=== PATIENT | female | born 1985 | race Hispanic/Latino ===

== ENCOUNTER 2017-11-07 08:30 | Inpatient (IN) | payer MEDICAID, OTHER ==
[~2017-11-07] VITALS: Ht 157.5 cm; Wt 73.5 kg
[2017-11-08 16:32] LABS: HEMATOCRIT 34.6 % (36-48); MEAN CORPUSCULAR HEMOGLOBIN 30.8 pg (27.0-33.0); MEAN CORPUSCULAR HGB CONC 33.6 g/dL (32.0-36.0); MEAN CORPUSCULAR VOLUME 91.8 fL (79-99); PLATELET COUNT (AUTO) 177 K/uL (130-400); RED BLOOD CELL COUNT(AUTO) 3.77 MIL/uL (4.00-5.50); RED CELL DISTRIBUTION WIDTH 13.8 % (11.0-15.5); WHITE BLOOD COUNT (AUTO) 7.1 K/uL (4.8-10.8)
[2017-11-09] MEDS ORDERED: LACTATED RINGERS 1000ML 1,000 ML IV SCH (07:15)
[2017-11-09] MEDS ORDERED: CALDOLOR 800MG+NS 250ML 250 ML IV PRN (07:15)
[2017-11-09] MEDS ORDERED: SENSORCAINE/DEXT/PF 0.75% 2ML AMP IJ ONE (11:13)
[2017-11-09] MEDS ORDERED: DURAMORPH PF1 MG/ML 10ML AMP IV ONE (11:14)
[2017-11-09] MEDS ORDERED: CEFAZOLIN SODIUM 1 GM VIAL IVP ONE (13:35)
[2017-11-09] MEDS ORDERED: PROMETHAZINE HCL 25 MG/ML 1ML AMPULE IM PRN ×2 (16:00→22:00)
[2017-11-09] MEDS ORDERED: DiphenhydrAMINE HCL 50 MG/ML VIAL IVP PRN (16:00)
[2017-11-09] MEDS ORDERED: METOCLOPRAMIDE 10 MG/2 ML VIAL IVP PRN (16:00)
[2017-11-09] MEDS ORDERED: NALOXONE HCL 0.4 MG/1 ML ML IVP PRN ×2 (16:00)
[2017-11-09] MEDS ORDERED: ONDANSETRON HCL 4 MG/2 ML VIAL IVP PRN ×2 (16:00)
[2017-11-09] MEDS ORDERED: ONDANSETRON HCL 4 MG/2 ML 8 MG in SODIUM CHLORIDE 0.9% 50 ML IVP NR (16:00)
[2017-11-09] MEDS ORDERED: HYDROCODONE/ACETAMINOPHEN 5/325 MG TAB PO PRN (16:00)
[2017-11-09] MEDS ORDERED: MORPHINE SULFATE 2 MG/ML 1ML SYG IVP PRN (16:00)
[2017-11-09] MEDS ORDERED: EPHEDRINE SULFATE 50 MG/ML AMPULE IVP PRN (16:00)
[2017-11-09] MEDS ORDERED: ONDANSETRON HCL MDV 20ML 2 MG/ML VIAL IVP PRN ×2 (16:01)
[2017-11-09] MEDS ORDERED: ONDANSETRON HCL 4 MG/2 ML VIAL ONE (16:02)
[2017-11-09] MEDS ORDERED: SODIUM CHLORIDE 0.9% IVP PRN (16:15)
[2017-11-09] MEDS ORDERED: ONDANSETRON HCL IVP PRN (16:15)
[2017-11-09 16:34] VITALS: BP 119/75
[2017-11-09] MEDS: HYDROCODONE/ACETAMINOPHEN 5/325 MG TAB PO PRN (16:53)
[2017-11-09 19:39] VITALS: BP 103/57
[2017-11-09] MEDS ORDERED: OXYTOCIN-LR 20 UNITS/1000 ML 1,000 ML IV PRN (21:51)
[2017-11-09] MEDS ORDERED: MEPERIDINE-PF 75 MG/ML SYG IM PRN (22:00)
[2017-11-09] MEDS ORDERED: SODIUM CHLORIDE 0.9% 10 ML VIAL IVP PRN (22:00)
[2017-11-09] MEDS: CALDOLOR 800MG+NS 250ML 250 ML IV SCH (22:03)
[2017-11-09] MEDS: CEFAZOLIN 2GM / 50 ML 50 ML IV SCH (22:30)
[2017-11-09] MEDS: CEFAZOLIN SODIUM 1 GM VIAL IVP PRN (22:35)
[2017-11-09 23:43] VITALS: BP 100/55
[2017-11-10] MEDS: DEXTROSE 5 %-0.45 % NACL 1,000 ML IV PRN ×2 (00:59→10:54)
[2017-11-10 04:04] VITALS: BP 103/58
[2017-11-10] MEDS: CALDOLOR 800MG+NS 250ML 250 ML IV SCH (06:07)
[2017-11-10] MEDS: CEFAZOLIN SODIUM 1 GM VIAL IVP PRN (06:10)
[2017-11-10] MEDS: CEFAZOLIN 2GM / 50 ML 50 ML IV SCH (06:11)
[2017-11-10 06:42] LABS: MEAN CORPUSCULAR HEMOGLOBIN 31.6 pg (27.0-33.0); MEAN CORPUSCULAR HGB CONC 34.3 g/dL (32.0-36.0); MEAN CORPUSCULAR VOLUME 92.1 fL (79-99); PLATELET COUNT (AUTO) 162 K/uL (130-400); RED BLOOD CELL COUNT(AUTO) 3.26 MIL/uL (4.00-5.50); RED CELL DISTRIBUTION WIDTH 13.8 % (11.0-15.5); WHITE BLOOD COUNT (AUTO) 7.2 K/uL (4.8-10.8)
[2017-11-10 07:37] VITALS: BP 98/65
[2017-11-10 08:20] LABS: HEPATITIS Bs ANTIGEN SCREEN P Negative (Negative)
[2017-11-10] MEDS ORDERED: BISACODYL 10 MG SUPP.RECT RC PRN (08:30)
[2017-11-10] MEDS ORDERED: LANOLIN 30GM OINTMENT TP PRN (08:30)
[2017-11-10] MEDS: SIMETHICONE 80 MG TAB.CHEW PO PRN ×3 (08:53→21:00)
[2017-11-10] MEDS: DOCUSATE SODIUM 100 MG CAP PO SCH ×2 (08:53→21:00)
[2017-11-10] MEDS: LIDOCAINE 5% TOPICAL PATCH TP SCH (08:54)
[2017-11-10 11:43] VITALS: BP 93/58
[2017-11-10] MEDS ORDERED: ACETAMINOPHEN-CODEINE 300/30MG TAB PO PRN (12:30)
[2017-11-10] MEDS: HYDROCODONE/ACETAMINOPHEN 5/325 MG TAB PO PRN (14:48)
[2017-11-10 15:58] VITALS: BP 118/82
[2017-11-10 20:20] VITALS: BP 103/66
[2017-11-10] MEDS: IBUPROFEN 800 MG TAB PO SCH (21:01)
[2017-11-11 00:20] VITALS: BP 104/52
[2017-11-11 03:15] VITALS: BP 102/62
[2017-11-11] MEDS: IBUPROFEN 800 MG TAB PO SCH ×2 (05:10→12:52)
[2017-11-11 07:28] VITALS: BP 106/65
[2017-11-11] MEDS: SIMETHICONE 80 MG TAB.CHEW PO PRN ×2 (08:45→12:52)
[2017-11-11] MEDS: LIDOCAINE 5% TOPICAL PATCH TP SCH (08:45)
[2017-11-11] MEDS: DOCUSATE SODIUM 100 MG CAP PO SCH (08:45)
[2017-11-11 11:47] VITALS: BP 109/69
== END 2017-11-11 15:00 | disposition home or self-care (01) | DRG 766 ==
LOC: EDSTATUS 08:30 → LDH 11-09 07:08 → WSH 11-09 16:18
PROC: 10D00Z1 Extraction of Products of Conception, Low, Open Approach (ICD-10-PCS; principal; 2017-11-09 10:45)
DX: O34.211 Maternal care for low transverse scar from previous cesarean delivery (principal); O99.824 Streptococcus B carrier state complicating childbirth; Z37.0 Single live birth; Z3A.39 39 weeks gestation of pregnancy
CPT/HCPCS: 36415; 59510; 85027; 86592; 86850; 86900; 86901; 87340; A4218; A4344; A4606; J0690; J1741; J2274; J2405; J2765; J3490; J7120

== ENCOUNTER 2023-01-22 07:46 | Emergency (ER) | payer BC, MEDICAID ==
[~2023-01-22] VITALS: Ht 154.9 cm; Wt 77.1 kg
[2023-01-22 08:58] LABS: BASOPHILS % (AUTO) 0.3 % (0.0-5.0); EOSINOPHILS % (AUTO) 1.5 % (0.0-8.0); HEMATOCRIT 34.9 % (36-48); MEAN CORPUSCULAR HEMOGLOBIN 24.9 pg (27.0-33.0); MEAN CORPUSCULAR HGB CONC 30.4 g/dL (32.0-36.0); MEAN CORPUSCULAR VOLUME 81.9 fL (79-99); MONOCYTES % (AUTO) 5.9 % (3.0-13.0); PLATELET COUNT (AUTO) 229 K/uL (130-400); RED BLOOD CELL COUNT(AUTO) 4.26 MIL/uL (4.00-5.50); RED CELL DISTRIBUTION WIDTH 15.6 % (11.0-15.5); WHITE BLOOD COUNT (AUTO) 3.9 K/uL (4.8-10.8)
[2023-01-22] MEDS ORDERED: ONDANSETRON ODT 4MG TAB SL ONE (09:00)
[2023-01-22] MEDS ORDERED: ACETAMINOPHEN 325 MG TAB ONE (09:02)
[2023-01-22 09:11] LABS: HCG,QUALITATIVE URINE NEGATIVE (NEGATIVE)
[2023-01-22 09:12] LABS: APPEARANCE,URINE CLOUDY (CLEAR); BILIRUBIN,URINE NEGATIVE (NEGATIVE); COLOR,URINE YELLOW (YELLOW); GLUCOSE, URINE (UA) NEGATIVE (NEGATIVE); KETONES,URINE NEGATIVE (NEGATIVE); LEUKOCYTE ESTERASE ,URINE NEGATIVE Leu/uL (NEGATIVE); NITRATE,URINE NEGATIVE (NEGATIVE); OCCULT BLOOD,URINE NEGATIVE (NEGATIVE); PROTEIN,URINE 10 mg/dL (NEGATIVE); UROBILINOGEN,URINE 0.2 mg/dL (0.2-1.0)
[2023-01-22 09:24] LABS: ALANINE AMINOTRANSFERASE 107 U/L (12-78); ALBUMIN 3.4 g/dL (3.5-5.0); ASPARTATE AMINOTRANSFERASE 66 U/L (10-37); CARBON DIOXIDE 26 mmol/L (21-32); CHLORIDE 103 mmol/L (101-111); CREATININE 0.7 mg/dL (0.5-1.5); GLOMERULAR FILTR. RATE CALC 114 mL/min (>90); GLUCOSE,RANDOM 123 mg/dL (70-105); POTASSIUM 3.7 mmol/L (3.5-5.1); SODIUM SERUM 139 mmol/L (136-145); TOTAL PROTEIN, SERUM 7.2 g/dL (6.0-8.3); UREA NITROGEN, BLOOD 7 mg/dL (7-18)
[2023-01-22 09:26] LABS: LIPASE < 50 U/L (114-286)
[2023-01-22] MEDS ORDERED: ACETAMINOPHEN 325 MG TAB PO ONE (09:30)
[2023-01-22 09:38] LABS: BACTERIA,URINE RARE /HPF (None Seen); MUCUS,URINE FEW LPF (None Seen); RBC,URINE 0-1 /HPF (0-1); SQUAMOUS EPITHELIAL CELL,UR FEW /HPF (0-2); WBC,URINE 0-1 /HPF (0-1)
[2023-01-22 10:04] VITALS: TEMP 98.8
[2023-01-22 11:01] VITALS: BP 105/66; PULSE 95; RESP 20; O2SAT 98
== END 2023-01-22 12:37 | disposition home or self-care (01) ==
LOC: EDH 07:46
DX: B34.9 Viral infection, unspecified (principal); M79.10 Myalgia, unspecified site; R50.9 Fever, unspecified; Z20.822 Contact with and (suspected) exposure to COVID-19
CPT/HCPCS: 99283; 87635; 80053; 83690; 85025; 87880; 87804 ×2; 81001; 81025; 36415; C9803

== ENCOUNTER 2023-01-24 07:17 | Emergency (ER) | payer BC ==
[~2023-01-24] VITALS: Ht 154.9 cm; Wt 74.4 kg
[2023-01-24 07:37] LABS: BASOPHILS # (AUTO) 0.01 K/uL (0.00-0.20); BASOPHILS % (AUTO) 0.3 % (0.0-5.0); HEMATOCRIT 37.6 % (36-48); IMMATURE GRANULOCYTE ABSOLUTE 0.01 K/uL (0-1); LYMPHOCYTES # (AUTO) 0.9 K/uL (1.0-4.8); LYMPHOCYTES % (AUTO) 27.9 % (21.0-51.0); MEAN CORPUSCULAR HEMOGLOBIN 24.8 pg (27.0-33.0); MEAN CORPUSCULAR HGB CONC 30.3 g/dL (32.0-36.0); MEAN CORPUSCULAR VOLUME 81.9 fL (79-99); MONOCYTES # (AUTO) 0.3 K/uL (0.1-1.0); MONOCYTES % (AUTO) 10.1 % (3.0-13.0); NEUTROPHILS % (AUTO) 58.4 % (40.0-77.0); PLATELET COUNT (AUTO) 262 K/uL (130-400); RED BLOOD CELL COUNT(AUTO) 4.59 MIL/uL (4.00-5.50); RED CELL DISTRIBUTION WIDTH 15.7 % (11.0-15.5); WHITE BLOOD COUNT (AUTO) 3.4 K/uL (4.8-10.8)
[2023-01-24 07:42] LABS: APPEARANCE,URINE CLOUDY (CLEAR); BILIRUBIN,URINE NEGATIVE (NEGATIVE); COLOR,URINE YELLOW (YELLOW); GLUCOSE, URINE (UA) NEGATIVE (NEGATIVE); KETONES,URINE 60 mg/dL (NEGATIVE); LEUKOCYTE ESTERASE ,URINE 75 Leu/uL (NEGATIVE); NITRATE,URINE NEGATIVE (NEGATIVE); OCCULT BLOOD,URINE NEGATIVE (NEGATIVE); PROTEIN,URINE 30 mg/dL (NEGATIVE); UROBILINOGEN,URINE 0.2 mg/dL (0.2-1.0)
[2023-01-24 07:43] LABS: HCG,QUALITATIVE URINE NEGATIVE (NEGATIVE)
[2023-01-24 07:44] LABS: ADD UA MICROSCOPIC YES
[2023-01-24 07:54] LABS: BACTERIA,URINE MOD /HPF (None Seen); MUCUS,URINE MOD LPF (None Seen); SQUAMOUS EPITHELIAL CELL,UR MANY /HPF (0-2)
[2023-01-24] MEDS ORDERED: METOCLOPRAMIDE 10 MG/2 ML VIAL IVP ONE (08:00)
[2023-01-24] MEDS ORDERED: MORPHINE 4 MG SYG IVP ONE (08:00)
[2023-01-24] MEDS ORDERED: LACTATED RINGERS 1000ML 1,000 ML IV ONE (08:00)
[2023-01-24 08:08] LABS: ALBUMIN 3.5 g/dL (3.5-5.0); BILIRUBIN,TOTAL 0.3 mg/dL (0.2-1.0); CREATININE 0.8 mg/dL (0.5-1.5); POTASSIUM 3.3 mmol/L (3.5-5.1); TOTAL PROTEIN, SERUM 7.6 g/dL (6.0-8.3)
[2023-01-24 09:29] VITALS: BP 104/63; PULSE 82; RESP 20; O2SAT 100
[2023-01-24] MEDS ORDERED: IOHEXOL-350 75 ML VIAL IV ONE (10:14)
[2023-01-24] MEDS ORDERED: CEPH500T PO (12:23)
[2023-01-24] MEDS ORDERED: METO5TAB87 PO (12:23)
[2023-01-24] MEDS ORDERED: KETOROLAC 15MG/ML VIAL (15MG/ML) IV ONE (12:30)
[2023-01-24] MEDS ORDERED: CEFTRIAXONE 1G VIAL IVPB ONE (12:30)
[2023-01-24] MEDS ORDERED: IBUP-2070 PO (12:57)
[2023-01-30 16:10] LABS: TYPHUS FEVER IGG <1:64 (Neg:<1:64); TYPHUS FEVER IGM <1:64 (Neg:<1:64)
== END 2023-01-24 13:30 | disposition home or self-care (01) ==
LOC: EDH 07:17
DX: N39.0 Urinary tract infection, site not specified (principal); R51.9 Headache, unspecified
CPT/HCPCS: 99285; 70450; 96365; 96375; 96361; 80053; 85025; 87040 ×2; 87088; 81001; 81025; 36415; 74177; 86757; J7120; J0696; J2270; J2765; J1885; Q9967